=== PATIENT | male | born 1980 | race Caucasian/White ===

== ENCOUNTER 2020-03-06 06:25 | Emergency (ER) | payer MEDICAID, SELFPAY ==
[2020-03-06 06:27] VITALS: BP 128/57; PULSE 84; RESP 18; TEMP 36.9; O2SAT 96; BMI 25.7
[2020-03-06 06:35] VITALS: BMI 27.1
--- NOTE | 2020-03-06 06:37 | CT_ITS ---
PROCEDURE: CT ABDOMEN PELVIS W CON CLINICAL INDICATION: abd and flank pain Right-sided low back pain and flank pain COMPARISON: No exams were available for comparison TECHNIQUE: IV Contrast: 75ML OPTIRAY 350 Oral Contrast None Axial images obtained with sagittal and coronal reformats. All CT scans at the facility use one or more dose reduction, viz: automated exposure control, ma/kV adjustment per patient size (including targeted exams where dose is matched to indication, i.e. head), or iterative reconstruction technique. FINDINGS: LOWER THORAX: No acute finding ABDOMEN & PELVIS: The liver, gallbladder, spleen, adrenal glands, pancreas, and kidneys have an unremarkable appearance. There are few small periaortic lymph nodes present measuring up to 17 x 8 mm. Prior appendectomy. There is a moderate amount of retained colonic feces. No evidence of diverticulitis. No pelvic mass or abnormal fluid collection. No evidence of small-bowel obstruction. No acute bony anomalies. IMPRESSION: 1. There is a mild amount of retained colonic feces. Prior appendectomy. 2. Mildly prominent retroperitoneal lymph nodes nonspecific. Consider 3 month follow-up to confirm stability Dictated by: Milton Morse MD 03/06/2020 07:30 Milton Morse MD in [facility] 03/06/2020 07:30
--- NOTE | 2020-03-06 06:47 | XR_ITS ---
PROCEDURE: XR CHEST 2V CLINICAL HISTORY: fever Fever and shortness of air COMPARISON: No exams were available for comparison FINDINGS: The cardiomediastinal silhouette and pulmonary vascularity are within normal limits. The lungs are clear without infiltrates, suspicious nodules, or pleural effusions. No acute bony abnormalities. IMPRESSION: No acute findings. Dictated by: Milton Morse MD 03/06/2020 07:14 Milton Morse MD in [facility] 03/06/2020 07:14
[2020-03-06 06:53] LABS: Basophils # 0.2 K/mm3 (0-0.2); Basophils % 1.4 % (0.1-2.0); Eosinophils # 0.1 K/mm3 (0.0-0.4); Eosinophils % 1.2 % (0.1-12.0); Hematocrit 43.9 % (42.0-52.0); Hemoglobin 14.4 g/dL (14.1-18.0); Lymphocytes % 9.5 % (10-50); Mean Corpuscular HGB Conc 32.8 g/dL (31.8-35.4); Mean Corpuscular Hemoglobin 31.3 pg (27.0-31.2); Mean Corpuscular Volume 95.4 fl (80-94); Monocytes % 9.5 % (1.7-9.3); Neutrophils # 8.2 K/mm3 (1.8-7.8); Neutrophils % 78.4 % (37.0-80.0); Platelet Count 272 K/mm3 (142-424); Red Cell Distribution Width 14.2 % (11.5-17.5); White Blood Count 10.5 K/mm3 (4.8-10.8)
[2020-03-06 06:55] LABS: Chloride 102 mmol/L (98-107); Sodium 136 mmol/L (136-145)
[2020-03-06 06:56] LABS: Potassium 4.1 mmoL/L (3.5-5.1)
[2020-03-06 06:58] LABS: Alanine Aminotransferase 25 U/L (12-78); Alkaline Phosphatase 74 U/L (38-126); Amylase 70 U/L (30-110); Anion Gap 10.1 mEq/L (5-15); Aspartate Amino Transferase 34 U/L (17-59); Bilirubin,Total 0.4 mg/dl (0.2-1.3); Blood Urea Nitrogen 12 mg/dl (9-20); Carbon Dioxide 28 mmol/L (22.0-30.0); Creatinine Clearance Estimated 135 mL/min (50-200); Estimated Glomerular Filt Rate 93 ml/min (>60); GFR (African American) 113 ML/MIN (>60)
[2020-03-06 06:59] LABS: Albumin Level 4.2 g/dl (3.5-5.0); Albumin/Globulin Ratio 1.1 (1.1-1.8); Calcium 9.1 mg/dl (8.4-10.2); Globulin 3.9 g/dL (1.3-3.2); Glucose 133 mg/dl (74-100); Lipase 52 U/L (23-300); Total Protein,Serum 8.1 g/dl (6.3-8.2)
[2020-03-06 07:22] VITALS: BP 105/55; PULSE 91; O2SAT 93
[2020-03-06 07:22] LABS: Coronavirus 19 IgG Antibody Negative (Negative); Coronavirus 19 IgM Antibody Negative (Negative)
--- NOTE | 2020-03-06 07:30 | [facility].EDABDPAI ---
ED Disposition Clinical Impression: Viral syndrome, Flank pain, acute, Subjective fever, Epidemic myalgia Headache Qualifiers: Headache type: unspecified Disposition: Home, Self-Care Condition on Discharge: Good Instructions: DI for Acute Abdomen Prescriptions: Cholecalciferol (Vitamin D3) [Dialyvite Vitamin D3 Max] 50,000 unit PO WEEKLY 30 Days #4 tab Transmission Status: Pending to [facility] methylPREDNISolone [Medrol 4mg tab] 4 mg PO DIRECTED #21 tab Transmission Status: Pending to [facility] Tizanidine HCl [Zanaflex 4mg tablet] 4 mg PO TID 10 Days #30 tab Transmission Status: Pending to [facility] Referrals: PCP,No [Primary Care Provider] - - Critical Care Critical Care Time: No Attestation: On 03/06/20, the high probability of a clinically significant, sudden or life threatening deterioration of the following system(s) required my full and direct attention, intervention and personal management. The time I documented below is in addition to time spent performing reported procedures but includes the following listed in this critical care notation. Medical Decision Making - Medical Records Medical records reviewed: Yes: I reviewed the patient's medical records. - Mason Inquiry Pt receiving controlled substance: No Vital Signs: 03/06/20 06:27 03/06/20 07:22 Temperature 98.4 F Temperature Source Oral Pulse Rate [Left Radial] 84 91 H Respiratory Rate 18 Blood Pressure [Right Arm] 128/57 L 105/55 L Blood Pressure Mean [Right Arm] 80 71 Blood Pressure Source [Right Arm] Automatic Cuff Blood Pressure Position [Right Arm] Supine 02 Sat by Pulse Oximetry 96 93 L Oxygen Delivery Method Room Air Room Air - Lab Data Lab results reviewed: Yes: I reviewed the patient's lab results. Lab Results 03/06/20 06:40: WBC 10.5, RBC 4.60, Hgb 14.4, Hct 43.9, MCV 95.4 H, MCH 31.3 H, MCHC 32.8, RDW 14.2, Plt Count 272, MPV 8.0, Neut % (Auto) 78.4, Lymph % (Auto) 9.5 L, Brooke % (Auto) 9.5 H, Eos % (Auto) 1.2, Baso % (Auto) 1.4, Neut # (Auto) 8.2 H, Lymph # (Auto) 1.0, Brooke # (Auto) 1.0, Eos # (Auto) 0.1, Baso # (Auto) 0.2 03/06/20 06:40: Sodium 136, Potassium 4.1, Chloride 102, Carbon Dioxide 28, Anion Gap 10.1, BUN 12, Creatinine 0.90, Estimated Creat Clear 135, Estimated GFR 93, Est GFR ( Amer) 113, Glucose 133 H, Calcium 9.1, Total Bilirubin 0.4, AST 34, ALT 25, Alkaline Phosphatase 74, Total Protein 8.1, Albumin 4.2, Globulin 3.9 H, Albumin/Globulin Ratio 1.1, Amylase 70, Lipase 52 03/06/20 06:40: SARS-CoV-2 IgG Ab (Rapid) Negative, SARS-CoV-2 IgM Ab (Rapid) Negative Result diagrams: 03/06/20 06:40 03/06/20 06:40 Orders (Tests/Meds): ED MEDICATIONS Generic Name Dose Route Start Last Admin Trade Name Freq PRN Reason Stop Dose Admin Sodium Chloride 1,000 mls @ 999 mls/hr 03/06/20 06:45 03/06/20 06:47 Sod Chlor 0.9% 1000ml Bag IV 03/06/20 07:45 999 mls/hr .Q1H1M BOBBI Administration Discontinued Medications Generic Name Dose Route Start Last Admin Trade Name Freq PRN Reason Stop Dose Admin Ioversol 75 ml 03/06/20 07:09 03/06/20 07:10 Ioversol-350 (74%) 100ml Vial IV 03/06/20 07:10 75 ml ONCE ONE Administration Protocol Ketorolac Tromethamine 30 mg 03/06/20 06:48 03/06/20 06:53 Ketorolac 30mg/Ml Vial IV 03/06/20 06:49 30 mg ONCE ONE Administration Ondansetron HCl 4 mg 03/06/20 06:48 03/06/20 06:53 Ondansetron 4mg/2ml Vial IV 03/06/20 06:49 4 mg ONCE ONE Administration Sodium Chloride 10 ml 03/06/20 07:09 03/06/20 07:10 Sodium Chloride 0.9% 10ml Syr (Rad Only) IV 03/06/20 07:10 10 ml ONCE ONE Administration ORDERS Category Date Time Status Covid-19 Nasal PCR ([facility]) Routine Lab 03/06/20 07:37 Ordered Drug Screen,Urine Stat Lab 03/06/20 06:37 Ordered Urinalysis (cathed specimen) Stat Lab 03/06/20 06:37 Ordered - CT Data CT Scan: Abdomen, Pelvis Time Received: 07:[address] Revi
[2020-03-06 07:51] VITALS: BP 117/64; PULSE 78; RESP 18; TEMP 36.6; O2SAT 93
--- NOTE | 2020-03-06 12:30 | PC.NURSE ---
received positive covid result from lab. pt called and notified on telephone. instructed patient to call pmd on sunday to schedule for a follow up and to return to ed for any signs of concern or distress. pt educated to quarantine his family also due to exposure. pt verbalizes understanding and denies further questions at this time.
== END 2020-03-06 07:55 | disposition home or self-care (01) ==
PROVIDERS: Emergency Provider Family Medicine
DX: U07.1 COVID-19 (principal); F17.210 Nicotine dependence, cigarettes, uncomplicated; M79.10 Myalgia, unspecified site
CPT/HCPCS: 71046; 74177; 80053; 82150; 83690; 85025; 86328; 96365; 96375; 99283; J2405; Q9967; U0003